=== PATIENT | female | born 1990 | race Hispanic/Latino ===

== ENCOUNTER 2018-03-20 08:13 | Outpatient (CLI) | payer OTHER, SELFPAY | END 2018-03-20 11:25 | disposition home or self-care (01) | LOC: M LDO 08:13 | DX: O47.1 False labor at or after 37 completed weeks of gestation (principal); Z3A.39 39 weeks gestation of pregnancy | CPT/HCPCS: 59025 ==

== ENCOUNTER 2018-03-20 18:05 | Inpatient (IN) | payer OTHER ==
[2018-03-20] MEDS ORDERED: LR 1,000 ML IV (19:46)
[2018-03-20] MEDS ORDERED: OXYTOCIN DRIP 30 UNITS in APPROPRIATE DILUENT 1 EA IV (20:00)
[2018-03-20] MEDS: LR 1,000 ML IV (20:10)
[2018-03-20] MEDS: LACTATED RINGER'S 1000 ML IV (20:10)
[2018-03-20 20:32] LABS: HEMATOCRIT 36.7 % (36.0-47.0); HEMOGLOBIN 12.6 g/dl (12.0-15.5); MEAN CORPUSCULAR HEMOGLOBIN 29.1 pg (27.0-33.0); MEAN CORPUSCULAR HGB CONC 34.3 g/dl (32.0-36.5); MEAN CORPUSCULAR VOLUME 84.8 fl (80.0-96.0); PLATELET COUNT, AUTOMATED 278 10^3/uL (150-450); RED BLOOD COUNT 4.33 10^6/uL (4.00-5.40); RED CELL DISTRIBUTION WIDTH 13.5 % (11.5-14.5); WHITE BLOOD COUNT 16.9 10^3/uL (4.0-10.0)
[2018-03-20] MEDS ORDERED: FENTANYL 2MCG/ML ROPIVACAINE 0.2% IN 0.9% NACL 200ML IVBAG As Ordered (20:44)
[2018-03-20] MEDS ORDERED: ePHEDrine SULFATE 25 MG/5 ML(5MG/ML) SYRINGE IV (22:45)
[2018-03-20] MEDS ORDERED: LACTATED RINGER'S 1000 ML IV (22:45)
[2018-03-20] MEDS ORDERED: EPIDURAL COMMENT XX (22:45)
[2018-03-20] MEDS ORDERED: REFRIGERATOR IV KEYS XX (22:45)
[2018-03-20] MEDS ORDERED: ONDANSETRON 4MG/2ML VIAL (J2405) IV (22:45)
[2018-03-20] MEDS ORDERED: diphenhydrAMINE INJ 50MG/ML VIAL (J1200) IV (22:45)
[2018-03-20] MEDS ORDERED: FENTANYL/ROPIVACAINE/NACL BAG 200 ML EPIDURAL (22:45)
[2018-03-20] MEDS ORDERED: NALOXONE INJ 0.4 MG/1 ML VIAL (J2310) IV (22:45)
[2018-03-20] MEDS ORDERED: EPIDURAL/PCA KEYS XX (22:45)
[2018-03-21 02:17] LABS: CORD GAS ABE V -11.9; CORD GAS HCO3 V 15.5 MEQ/L; CORD GAS O2 SAT V 68.9 %; CORD GAS PCO2 V 40.1 mmHg; CORD GAS PH V 7.204 UNITS; CORD GAS PO2 V 33.6 mmHg; CORD GAS SBC V 14.9 MEQ/L; CORD GAS TCO2 V 16.7 MEQ/L
[2018-03-21] MEDS ORDERED: ONDANSETRON 4MG/2ML VIAL (J2405) IV (02:30)
[2018-03-21] MEDS ORDERED: RHOGAM 300 MCG (1500 IU) INJ (J2790) IM (02:30)
[2018-03-21] MEDS ORDERED: DIBUCAINE 1% OINTMENT 30GM TOP (02:30)
[2018-03-21] MEDS ORDERED: PROMETHAZINE 25 MG TAB PO (02:30)
[2018-03-21] MEDS ORDERED: METHYLERGONOVINE MALEATE 0.2 MG TAB PO (02:30)
[2018-03-21] MEDS ORDERED: DOCUSATE SODIUM 100 MG CAP PO (02:30)
[2018-03-21] MEDS ORDERED: MEASLES,MUMPS,RUBELLA VACCINE INJ (MMR-II) (90707) SC (02:30)
[2018-03-21] MEDS ORDERED: MOM 30ML SUSPENSION UDC PO (02:30)
[2018-03-21] MEDS: LR 1,000 ML IV ×3 (03:46→19:21)
[2018-03-21] MEDS: ACETAMINOPHEN 500 MG TAB PO (05:49)
[2018-03-21] MEDS: PRENATAL VITAMINS CHEWABLE TABLET PO (09:21)
[2018-03-21] MEDS: IBUPROFEN 800 MG TAB PO (20:42)
[2018-03-22] MEDS: PRENATAL VITAMINS CHEWABLE TABLET PO (09:18)
[2018-03-22] MEDS: IBUPROFEN 800 MG TAB PO ×2 (12:41→23:10)
[2018-03-23] MEDS: PRENATAL VITAMINS CHEWABLE TABLET PO (09:17)
== END 2018-03-23 11:30 | disposition home or self-care (01) | DRG 775 ==
LOC: M LDO 18:05 → M OBS 03-21 05:48 → M LDI 19:51
PROVIDERS: Student in an Organized Health Care Education/Training Program
PROC: 10E0XZZ Delivery of Products of Conception, External Approach (ICD-10-PCS; principal; 2018-03-21)
PROC: 0KQM0ZZ Repair Perineum Muscle, Open Approach (ICD-10-PCS; 2018-03-21)
DX: O70.1 Second degree perineal laceration during delivery (principal); Z37.0 Single live birth; Z3A.39 39 weeks gestation of pregnancy